=== PATIENT | male | born 1985 | race Caucasian/White ===

== ENCOUNTER 2016-10-20 17:05 | Inpatient (IN) ==
[2016-10-20] MEDS ORDERED: METOCLOPRAMIDE 10 MG/2 ML VIAL IV STA (17:50)
[2016-10-20] MEDS ORDERED: PANTOPRAZOLE 40 MG VIAL IV STA (17:50)
[2016-10-20] MEDS ORDERED: SODIUM CHLORIDE 0.9% 500 ML IV STA (17:50)
[2016-10-20] MEDS ORDERED: LEVOFLOXACIN INJ 750 MG in PREMIX 1 EACH IV STA (17:50)
[2016-10-20] MEDS ORDERED: ONDANSETRON 4 MG/2 ML VIAL IV STA (17:50)
--- NOTE | 2016-10-20 17:55 | Emergency Department Note ---
Arrival - Arrival Chief Complaint: Abdominal / Flank Pain Stated Complaint: GALLBLADDER PAIN ED Nursing Triage Note: c/o ruq abd pain for a few weeks. +n/v Mode of Arrival: Ambulatory Limitations: No Limitations Source: Patient Time Seen by Provider: 10/20/16 17:50 - History of Present Illness HPI Narrative: This 31-year-old white male presents with 1 month of complaints of right upper quadrant pain radiating into the right shoulder into the back associated with nausea and morning vomiting. He was seen by his primary care physician did a CT and told him it was negative but that he had abnormal blood work and could possibly have gallbladder problems for this reason the patient presents today. The patient does complain of heartburn, belching, water brash, chills, and low- grade fever, but currently he appears in no acute medical distress Onset (ago): month(s) (Patient presents 1 month post onset of symptoms) Allergies/Adverse Reactions: Allergies Allergy/AdvReac Type Severity Reaction Status Date / Time Penicillins Allergy Unknown/Unable Verified 10/20/16 17:13 to obtain Home Medications: Home Medications Medication Instructions Recorded Confirmed Type Cefuroxime Tab [Ceftin] 500 mg PO BID 10/20/16 10/20/16 History Review of System - Review of System 12 point system: reviewed and no additional remarkable complaints except as stated - Review of System Constitutional: Present: as per HPI Gastrointestinal: Present: as per HPI Medical,Surgical,& Family Hx - Social History Smoking Status: Never smoker Frequency of Alcohol Use: Occasionally Type of Drug Use: None Exam Physical Examination: GENERAL: Well developed, well nourished white male in no acute distress. HEENT: Normocephalic. No trauma. Moist mucous membranes. EOMI. PERRLA. ENT NML NECK: Supple. No adenopathy. CARDIAC: Regular. No murmurs. Heart rate 100 CHEST: Clear to auscultation. No respiratory distress. O2 sat 97 ABDOMEN: Soft. Tender right upper quadrant with hypoactive bowel sounds. EXTREMITIES: No trauma. Normal ROM. No pedal edema. SKIN: No diaphoresis. No rash. NEURO: Alert. Neuro intact. No focal deficits. Vital Signs: Vital Signs Temperature 98.6 F 10/20/16 17:44 Pulse Rate 106 H 10/20/16 18:45 Respiratory Rate 18 10/20/16 18:45 Blood Pressure 146/98 10/20/16 18:45 O2 Sat by Pulse Oximetry 99 10/20/16 18:45 Course - Reevaluation(s) Reevaluation #1: Discussed with patient the need for hospitalization for interventional surgery for his gallbladder disease. - Consultations Consultation #1: Discussed with Dr. Guerrero who will admit the patient for further evaluation treatment. Results - Labs CBC & BMP: 10/20/16 18:40 10/20/16 18:40 - Diagnostic Findings Procedure: Ultrasound: image reviewed by me, report reviewed by me (Gallbladder : 4 mm gallbladder polyp) Disposition Clinical Impression: Gallbladder disease, Gallbladder polyp Case discussed with: patient, patient's family Disposition: Still a Patient Condition: Stable Time of Disposition: 20:06
[2016-10-20] MEDS ORDERED: PANTOPRAZOLE 40 MG VIAL IV ONE (18:24)
[2016-10-20] MEDS ORDERED: METOCLOPRAMIDE 10 MG/2 ML VIAL ONE (18:25)
[2016-10-20] MEDS ORDERED: ONDANSETRON 4 MG/2 ML VIAL ONE (18:25)
[2016-10-20 18:56] LABS: Basophils % 0.1 % (0.0-0.8); Hematocrit 47.1 VOL% (42.0-52.0); Hemoglobin 16.8 GM/DL (14.0-18.0); Immature Granulocytes % 0.6 %; Immature Granulocytes Absolute 0.08 #; Lymphocytes # 1.7 10*3/uL (1.4-4.0); Lymphocytes % 11.6 % (21.2-54.2); Mean Corpuscular HGB Conc 35.7 GM/DL (32-36); Mean Corpuscular Hemoglobin 30 PG (27-34); Mean Corpuscular Volume 83.5 FL (87-102); Mean Platelet Volume 11.5 FL (9.6-12.0); Monocytes # 1.2 10*3/uL (0.11-0.8); Monocytes % 8.6 % (1.7-12.7); Neutrophils # 11.5 10*3/uL (1.4-7.4); Neutrophils % 79.1 % (38.7-73.9); Platelet Count 259 T/CUMM (130-400); Red Blood Count 5.64 MC/CUMM (3.8-5.5); Red Cell Distribution Width 12.1 % (9.3-17.3); White Blood Count 14.5 T/CUMM (4-12)
[2016-10-20] MEDS ORDERED: LEVOFLOXACIN INJ 150 ML IV ONE (19:12)
[2016-10-20 19:14] LABS: Lactic Acid 1.7 MMOL/L (0.4-2.0)
[2016-10-20 19:16] LABS: Albumin 4.8 G/DL (3.4-5.0); Bilirubin,Total 0.6 MG/DL (0.2-1.0); Calcium 9.4 MG/DL (8.5-10.1); Osmolality,Calculated 275.7 MOS/KG (273-304); Potassium 3.9 MMOL/L (3.5-5.1); Total Protein 8.3 G/DL (6.4-8.3)
--- NOTE | 2016-10-20 19:20 | Ultrasound Report ---
Gallbladder ultrasound. Right upper quadrant pain. The liver is normal in size. There is fatty infiltration of the liver. No focal liver lesions are identified. There is a 4 mm gallbladder polyp. No gallstones. No gallbladder wall thickening or fluid around the gallbladder. The common duct measures 3 mm. The right kidney has a normal appearance. Portions of the pancreas are secured by bowel gas. Visualized portions appear normal. Impression: 4 mm gallbladder polyp. Follow-up recommended. PROCEDURE INTERPRETED AT [facility] DEPARTMENT OF RADIOLOGY Final Report Signed by: Dr. Katrin Pollard
[2016-10-20 20:01] LABS: Apearance,Urine CLEAR (Clear); Bilirubin,Urine Negative (Negative); Blood, Urine Negative (Negative); Glucose,Urine (UA) Negative (Negative); Ketones,Urine 5 mg/dL (Negative); Mucus,Urine Occasional /LPF (Occasional); Nitrite,Urine Negative (Negative); Protein,Urine Negative; Urine Color Yellow (Yellow); Urine Specific Gravity 1.019 (1.001-1.035); Urine Urobilinogen < 2.0 EU/DL (0.2-1.0); WBC,Urine <1 /HPF (0-6)
[2016-10-20] MEDS ORDERED: HYDROmorphone 2 MG/1 ML VIAL IV PRN (20:07)
[2016-10-20] MEDS: ONDANSETRON 4 MG/2 ML VIAL IV SCH (21:33)
[2016-10-20] MEDS: METOCLOPRAMIDE 10 MG/2 ML VIAL IV SCH (23:26)
[2016-10-20] MEDS: LACTATED RINGERS 1,000 ML IV SCH (23:26)
[2016-10-21] MEDS: ONDANSETRON 4 MG/2 ML VIAL IV SCH ×3 (00:21→10:16)
[2016-10-21] MEDS: METOCLOPRAMIDE 10 MG/2 ML VIAL IV SCH ×2 (06:03→12:10)
[2016-10-21 06:35] LABS: Basophils % 0.2 % (0.0-0.8); Eosinophils % 0.3 % (0.00-10.9); Hematocrit 42.3 VOL% (42.0-52.0); Immature Granulocytes % 0.5 %; Immature Granulocytes Absolute 0.05 #; Lymphocytes # 1.9 10*3/uL (1.4-4.0); Lymphocytes % 19.5 % (21.2-54.2); Mean Corpuscular Hemoglobin 30 PG (27-34); Mean Corpuscular Volume 84.4 FL (87-102); Mean Platelet Volume 11.7 FL (9.6-12.0); Monocytes # 0.9 10*3/uL (0.11-0.8); Monocytes % 9.2 % (1.7-12.7); Neutrophils # 6.7 10*3/uL (1.4-7.4); Neutrophils % 70.3 % (38.7-73.9); Red Blood Count 5.01 MC/CUMM (3.8-5.5); Red Cell Distribution Width 12.2 % (9.3-17.3)
[2016-10-21 06:37] LABS: Hemoglobin 14.8 GM/DL (14.0-18.0); Platelet Count 185 T/CUMM (130-400); White Blood Count 9.5 T/CUMM (4-12)
[2016-10-21 06:58] LABS: Albumin 3.8 G/DL (3.4-5.0); Bilirubin,Total 0.6 MG/DL (0.2-1.0); Calcium 8.6 MG/DL (8.5-10.1); Osmolality,Calculated 282.1 MOS/KG (273-304); Potassium 4.5 MMOL/L (3.5-5.1); Total Protein 6.7 G/DL (6.4-8.3)
[2016-10-21 08:40] LABS: Hepatitis A Ab IgM Quant 0.08 Index; Hepatitis A Ab IgM Result Negative (Negative); Hepatitis B Core IgM Quant 0.18 Index; Hepatitis B Core IgM Result Negative (Negative); Hepatitis B Surface Ag Quant 0.28 Index; Hepatitis B Surface Ag Result Negative (Negative); Hepatitis C Virus Ab Quant 0.12 Index; Hepatitis C Virus Ab Result Negative (Negative)
[2016-10-21] MEDS ORDERED: PANTOPRAZOLE 40 MG VIAL IV SCH (09:00)
--- NOTE | 2016-10-21 09:57 | Nuclear Medicine Report ---
NM hepatobiliary Indication: Right upper quadrant abdominal pain Comparison: None Radiopharmaceutical: 5 mCi technetium 99m Choletec IV. Technique: Anterior dynamic images were acquired over the upper abdomen for a period of 1 hour following intravenous administration of the radiopharmaceutical. Subsequently, 8 ounces Ensure was administered orally with additional images of the upper abdomen acquired for 30 minutes. Patient complained of abdominal cramping after oral administration of Ensure. Gallbladder ejection fraction was calculated. Findings: Review of the images demonstrate prompt clearance of the radiopharmaceutical from the blood pool into the liver parenchyma. There is prompt progression of the isotope from the liver into the intrahepatic biliary ducts, common bile duct, and the gallbladder. Radiotracer is noted in the small bowel at the end of 60 minutes.Following administration of Ensure , calculated gallbladder ejection fraction was 56 % (normal > 35%). There was further radiotracer accumulation in the small bowel. IMPRESSION: Patient complained of abdominal cramping after oral administration of Ensure. Otherwise, unremarkable nuclear medicine hepatobiliary imaging study with normal gallbladder ejection fraction. PROCEDURE INTERPRETED AT [facility] DEPARTMENT OF RADIOLOGY Final Report Signed by: Dr Sabino Conklin
[2016-10-21] MEDS: LACTATED RINGERS 1,000 ML IV SCH ×4 (10:17→22:59)
[2016-10-21] MEDS ORDERED: CLINDAMYCIN INJ 900 MG in PREMIX 1 EACH IV ONE (11:22)
--- NOTE | 2016-10-21 11:28 | General Surg History&Physical ---
Assessment and Plan (1) Abdominal pain, right upper quadrant Status: Acute Assessment and plan: At present, the patient's symptomology is leads more towards gallbladder etiology and may be associated with symptomatic gallbladder polyp/stone. The indications for proceeding with surgical intervention as well as the alternative treatment options including monitoring were reviewed with the patient his family who is present. The risk of surgery reviewed including but not limited to infection, bleeding, blood vessel injury, nerve injury, adjacent organ injury, the need for open procedure or additional procedures in the future , incomplete or no relief of symptoms, reactions to medications, and potential cardiac, pulmonary and/or neurologic events. At this time, the patient expresses wishes to proceed with cholecystectomy. We will proceed today. Current Visit: Yes History of Present Illness Chief complaint: RUQ pain History of present illness: Mr. Agee is a 31 year old male with no concerning past medical history reports roughly one month of right upper quadrant pain radiating to his right flank associated with nausea and usually morning vomiting. He had an outpatient evaluation performed with concerns for gallbladder etiology. He is here for further assessment. He has had no fever, chills, rigors, diarrhea, melena, hematochezia, arthralgias or rashes. Pain is moderate to severe, aching in nature and worsened with eating. His pain increased after drinking Ensure for the HIDA scan today. Home Medications Medication Instructions Recorded Confirmed Type Cefuroxime Tab [Ceftin] 500 mg PO BID 10/20/16 10/20/16 History Allergies Allergy/AdvReac Type Severity Reaction Status Date / Time Penicillins Allergy Unknown/Unable Verified 10/20/16 17:13 to obtain Medical,Surgical,& Family Hx - Medical History Medical History: noncontributory - Surgical History Surgical History: noncontributory - Family History Family History: noncontributory - Social History Smoking Status: Never smoker Frequency of Alcohol Use: Occasionally Type of Drug Use: None Functional capacity: independent ambulation Exam - Constitutional Vitals: Period Temp Pulse Resp BP Sys/Fox Pulse Ox Last 24 Hr 98.4 F-99.0 F 98-118 18-20 120-146/75-98 97-100 General appearance: no acute distress - Head Head exam: Present: normal inspection, normocephalic - Eye Eye exam: Absent: conjunctival injection, scleral icterus - Neck Neck exam: Present: trachea midline - Respiratory Respiratory exam: Present: clear to auscultation bilaterally - Cardiovascular Cardiovascular exam: Present: RRR - GI/Abdominal GI/Abdominal exam: Present: normal bowel sounds, tenderness (RUQ), soft. Absent : distended - Extremities Exam Extremities exam: Absent: calf tenderness, edema - Neurological Exam Neurological exam: Present: alert, oriented X3 Speech: Present: normal - Skin Skin exam: Present: normal color, warm - Constitutional Constitutional: Present: as per HPI - Cardiovascular Cardiovascular: Absent: chest pain at rest, chest pain with activity, dyspnea on exertion, orthopnea, palpitations - Respiratory Respiratory: Absent: cough, wheezing - Gastrointestinal Gastrointestinal: Present: as per HPI - Genitourinary Genitourinary: Absent: difficulty urinating, dysuria, flank pain, hematuria - Musculoskeletal Musculoskeletal: Absent: arthralgias Hematologic/Lymphatic: Absent: easy bleeding, easy bruising Quality Measures - VTE Contraindication to Pharmacological VTE Prophylaxis: High Risk of Bleeding Results - Labs CBC & BMP: 10/21/16 05:38 10/21/16 05:38 Labs: HIDA: unremarkable UA unremorkable LFTs unremarkable - Diagnostic Findings Procedure: Ultrasound: image reviewed by me, report reviewed by me (Gallbladder - possible 4mm GB polyp)
[2016-10-21] MEDS ORDERED: ONDANSETRON 4 MG/2 ML VIAL IV PRN ×2 (12:10→15:53)
[2016-10-21] MEDS ORDERED: TISSUE ADHESIVE 1 EACH APPLICATOR TOP ONE (13:30)
[2016-10-21] MEDS ORDERED: BUPIVACAINE MPF 0.25% /EPI 30 ML VIAL ONE (13:30)
--- NOTE | 2016-10-21 15:33 | Fluoroscopy Report ---
Intraoperative fluoroscopy. Intraoperative cholangiogram. Indication: Cholecystectomy. Fluoroscopy time, 33 seconds. 159 digital images were obtained during an intraoperative cholangiogram performed by the primary service. The cystic duct was cannulated and injected. The ductal system is not dilated. Initially, air bubbles were visible, but these did not persist, and there is no evidence of filling defect to suggest stone or mass. Contrast material emptied readily into the small intestine. Impression: Normal intraoperative cholangiogram. PROCEDURE INTERPRETED AT [facility] DEPARTMENT OF RADIOLOGY Final Report Signed by: Dr. Katrin Pollard
--- NOTE | 2016-10-21 15:43 | Anesthesia Post-Op ---
Anesthesia Post OP - Post Ansesthetic Evaluation Patient seen in post op: Yes Resp: within normal limits CV: within normal limits Mental: within normal limits Temp: within normal limits [id number]: within normal limits Nausea and Vomiting: within normal limits Pain: within normal limits
[2016-10-21] MEDS ORDERED: ONDANSETRON 4 MG/2 ML VIAL ONE ×2 (15:44→16:00)
[2016-10-21] MEDS ORDERED: HYDROmorphone 2 MG/1 ML VIAL ONE (15:44)
[2016-10-21] MEDS: HYDROmorphone 2 MG/1 ML VIAL IV PRN ×4 (15:45→16:12)
--- NOTE | 2016-10-21 15:58 | Operative Note ---
Date of procedure: 10/21/16 Pre-op diagnosis: Biliary colic, gallbladder polyp Post-op diagnosis: same Procedure: Procedure performed: Laparoscopic cholecystectomy with intraoperative cholangiogram Procedure in detail: After informed consent was obtained, patient was taken operating suite placed upon the operating table. After general anesthesia was induced abdomen was prepped and draped in usual sterile fashion. After procedural pause local anesthetic and strength skin and subcutaneous tissue above the umbilicus. Incision made and dissection carried down through skin and soft tissue. Fascia was grasped and elevated fascial incision was made. Abdominal cavity was entered bluntly. Finger sweep revealed no adhesions. Feldman trocar placed under direct visualization. Pneumoperitoneum achieved. The camera inserted. Bowel mesentery were inspected and found to be free of any violation. Patient was placed in reverse Trendelenburg position rotated to the left. 2 5 mm trochars were placed in the right upper quadrant 11 mm subxiphoid trocar was placed all under visualization. Gallbladder was identified. It appeared thickened and whitish consistent with chronic cholecystitis. It was grasped and elevated. There were some mild adhesions to the gallbladder wall which were bluntly swept away. Infundibulum of the gallbladder retracted toward the right hip. Dissection was carried out from lateral to medial approach and the triangle of Kavon. Cystic duct and cystic artery were identified and isolated. Using a critical view technique these are the only 2 structures entering the gallbladder. Clip was placed at the junction of the cystic duct neck of the gallbladder and partial transection made on the cystic duct. Cholangiocatheter inserted and secured in place. Intraoperative glandular and performed. Cystic duct common bile duct intra-and extrahepatic ducts all filled. There is one filling defect identified with it was flushed and thought to be an air bubble. Afterward there were no further filling defects. Contrast was seen entering small bowel. Cholangiocatheter was removed. The cystic duct was double clipped just distal to the partial transection and the transection completed. Cystic artery was triple clipped and transected high along the gallbladder wall. Gallbladder was then removed from the gallbladder fossa using hook cautery and placed in Endo Catch sac and removed to the Feldman trocar site. Pneumoperitoneum reachieved. Right upper quadrant thoroughly irrigated and suctioned. The clips inspected found to be intact no leakage of bilious or sanguinous fluid. There was excellent hemostasis. Trochars were removed his abdomen desufflated. Fascia at the Feldman trocar site closed using 0 Vicryl [id number] interrupted suture. Wounds were irrigated and suctioned. Deep dermal layer closed with 3-0 Vicryl. 4 Monocryl used to close skin. Sterile dressings applied. Patient was extubated taken recovery room in stable condition. All lap and needle counts correct at the end of the case. Anesthesia: GETA Surgeon / Physician: Neri Hammond Estimated blood loss: other Specimens: other (Gallbladder) Condition: stable Disposition: PACU Results - Labs CBC & BMP: 10/21/16 05:38 10/21/16 05:38 Discharge Plan - Discharge Medications No Action Cefuroxime Tab [Ceftin] 500 mg PO BID - Follow Up or Referral - Forms/Instructions
[2016-10-21] MEDS ORDERED: DESFLURANE 1 UNIT/15 MINUTE INH ONE (16:00)
[2016-10-21] MEDS ORDERED: PROPOFOL 200 MG/20 ML VIAL IV ONE (16:00)
[2016-10-21] MEDS ORDERED: MIDAZOLAM 2 MG/2 ML VIAL ONE (16:00)
[2016-10-21] MEDS ORDERED: GLYCOPYRROLATE 0.4 MG/2 ML VIAL ONE (16:00)
[2016-10-21] MEDS ORDERED: fentaNYL 100 MCG/2 ML VIAL ONE (16:00)
[2016-10-21] MEDS ORDERED: ROCURONIUM 100 MG/10 ML VIAL IV ONE (16:01)
[2016-10-21] MEDS ORDERED: NEOSTIGMINE 10 MG/10 ML VIAL ONE (16:01)
[2016-10-21] MEDS ORDERED: ACETAMINOPHEN 1,000 MG/100 ML VIAL IV ONE (16:01)
[2016-10-21] MEDS ORDERED: LEVOFLOXACIN INJ 750 MG in PREMIX 1 EACH IV SCH (21:00)
[2016-10-22] MEDS ORDERED: PANTOPRAZOLE 40 MG TABLET PO SCH (09:00)
--- NOTE | 2016-10-22 09:14 | Discharge Summary ---
Hospital Course - Hospital Course Hospital Course: Patient is a 31-year-old male who underwent laparoscopic cholecystectomy with intraoperative cholangiogram for biliary colic and gallbladder polyp. Procedure was without complication. Pathology pending at the time of discharge. Postoperatively, the patient progressed well. His pain was adequately controlled, and he was tolerating oral intake and activity without difficulty. Voiding without difficulty and passing flatus. He was discharged home in good condition with appropriate analgesics and follow-up with Dr. Hammond or 1 of his partners. Diagnosis - Discharge Diagnosis (1) Abdominal pain, right upper quadrant Status: Acute (2) Gallbladder polyp Status: Acute (3) Biliary colic Status: Acute Specialty Discharge - Follow Up or Referrals Follow up with: Neri Hammond MD [Physician] - 10/29/16 9:00 am (Dr. Hammond 10/29/2016 @ 9am) Discharge Plan - Discharge Data Disposition: Disch To Home/Self Care Condition at Discharge: Stable Discharge Diet: advance to your usual diet Activity: no lifting (> 10 lb. Avoid exercises or rigorous activity until f/u appt) Hygiene: may shower (Starting 2 days after surgery. Do not soak or submerge wounds. ) Driving: other (No driving while taking narcotics) Contact your physician if you experience:: fever over 101, Difficulty voiding, Redness or swelling, Nausea/Vomiting, Shortness of breath, Bleeding, pain uncontrolled by pain medications Wound / Dressing Care Instructions: Keep surgical incision clean and dry. - Discharge Medications New HYDROcodone/ACETAMIN 7.5-325 [[place] 7.5-325] 1 tablet PO Q4H PRN #30 tablet PRN Reason: Pain Moderate To Severe (4-10) Discontinued Cefuroxime Tab [Ceftin] 500 mg PO BID - Follow Up or Referral Follow Up: Neri Hammond MD [Physician] - 10/29/16 9:00 am (Dr. Hammond 10/29/2016 @ 9am) - Forms/Instructions Instructions: Laparoscopic Cholecystectomy (DC) Exam - Constitutional Vitals: Period Temp Pulse Resp BP Sys/Fox Pulse Ox Last 24 Hr 97.4 F-99.0 F 90-122 16-24 124-157/77-98 93-100 General appearance: no acute distress - Head Head exam: Present: normal inspection, normocephalic - Eye Eye exam: Absent: conjunctival injection, scleral icterus - Respiratory Respiratory exam: Present: clear to auscultation bilaterally - Cardiovascular Cardiovascular exam: Present: regular rate and rhythm - GI/Abdominal GI/Abdominal exam: Present: normal bowel sounds, soft. Absent: guarding ( Appropriate postoperative tenderness about surgical incisions. Surgical incisions are clean, dry and intact.), rebound - Extremities Exam Extremities exam: Absent: calf tenderness, edema - Neurological Exam Neurological exam: Present: alert, oriented X3 - Psychiatric Psychiatric exam: Present: normal affect, normal mood - Skin Skin exam: Present: normal color, warm Discharge Results Procedures and tests throughout hospitalization: Pending Orders 10/20/16 18:40 Blood Culture Stat 1. Laparoscopic cholecystectomy #2 Intraoperative cholangiogram #3 pathology gallbladder pending #4 HIDA scan unremarkable Labs on day of discharge: Preliminary micro results at discharge 10/20/16 18:40 Blood Culture - Preliminary Blood No growth at 1 day 10/20/16 18:43 Blood Culture - Preliminary Blood No growth at 1 day - Imaging and Cardiology Procedure: Ultrasound: image reviewed by me, report reviewed by me DS: Provider Date of admission: 10/20/16 20:06 Primary care physician: . No PCP Attending physician on admission: Neri Hammond MD Consults: None Discharging clinician: Michelle Vaca PA-C
[2016-10-22 11:36] VITALS: BP 132/77
[2016-10-22] MEDS: LACTATED RINGERS 1,000 ML IV SCH (12:30)
--- NOTE | 2016-10-23 11:16 | Pathology Report from [facility] ---
[facility] ACCESSION # : [id number] PATIENT NAME : Fermin Agee ORDERING DR : Neri Hammond MD CLINICAL HX: Symptomatic gallbladder polyp POST-OP DX: Same SPECIMEN INFO: Gallbladder with polyp GROSS DESCRIPTION: Received in formalin labeled FERMIN AGEE is an intact gallbladder measuring 5.9 x 2.9 cm. The serosa is smooth boland milian and glistening. The gallbladder wall has a thickness of 0.2 cm. The mucosa is dark bile stained green with a granular appearance. The lumen contains thick dark green bile. No stones are identified. Scrap Hoist Operator sections are submitted in one cassette. DIAGNOSIS FOR FERMIN AGEE: GALLBLADDER, CHOLECYSTECTOMY: Chronic cholecystitis. COLLECTED DATE: 10/22/2016 [facility] REPORT DATE: 10/23/2016 ELECTRONICALLY SIGNED BY: Delvin Miller M.D. 10/23/2016 - 9:25:52 [facility]PITALAnette
--- NOTE | 2016-10-26 08:29 | Physician Query Form ---
CLICK EDIT DOCUMENT TO SELECT QUERY ANSWER --> OK --> SIGN Patti Rodney RN Clinical Cigarette Vendor W) [phone] (f) [phone] [email or web address]: Make your selection(s) from the choices in EACH section by typing an "x" and enter comments in the comment section. Please use your independent medical judgment in providing your response. This request does not imply that any particular answer is desired or expected. CLINICAL INDICATORS: (Providers should not edit this section) Based on documentation of "underwent laparoscopic cholecystectomy with intraoperative cholangiogram for biliary colic and gallbladder polyp. Pathology pending at the time of discharge". Pathology report showed " Chronic cholecystitis". Pathology Findings: Chronic cholecystitis Abnormal Pathology findings are not reported unless an authorized provider indicates their clinical significance Please select the best choice: (x ) I agree with the Pathology findings ( ) I disagree with the Pathology findings ( ) No clinical significance ( ) Other/clarification of findings, please specify: ( ) Clinically unable to determine COMMENTS: PLEASE ALSO DOCUMENT RESPONSE IN PROGRESS NOTES AND/OR DISCHARGE SUMMARY Use of terms such as suspected, likely, or probable (associated with a specific diagnosis that is being evaluated, monitored, or treated as if it exists) are acceptable and can be restated in the discharge summary if not ruled out. MTDD
== END 2016-10-22 15:40 | disposition home or self-care (01) | DRG 419 ==
LOC: N.ED 17:05 → N.EDINP 20:06 → N.3E 20:56
PROVIDERS: ADMIT Surgery; ATTEND Surgery
PROC: LAPCHOL (2016-10-21 14:35)